=== PATIENT | male | born 1980 | race Caucasian/White ===

== ENCOUNTER 2016-05-17 20:35 | Emergency (ER) | payer SELFPAY ==
[2016-05-17] MEDS ORDERED: TYLENOL ONE (21:17)
[2016-05-17] MEDS ORDERED: TYLENOL PO ONE (21:18)
[2016-05-18 04:09] VITALS: BP 114/76
[2016-05-18] MEDS ORDERED: TYLENOL #3 PO ONE (05:19)
[2016-05-18] MEDS ORDERED: ROBITUSSIN PO ONE (05:23)
--- NOTE | 2016-05-18 05:23 | Emergency Department Report ---
HPI - General Chief Complaint: Fever Time Seen by Provider: 05/18/16 04:28 - HPI HPI: 35-year-old male presents to the ED complaining of headache and low back pain 2 days. Patient states headache began 2 days ago. Patient describes headache has generalized, 10 out of 10 in intensity at its worse, nonradiating. Patient denies blurred vision dizziness or loss of vision. Patient also admits to low back pain times several days due to work. 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 Patient also made some nonproductive dry cough that's worsened with inhalation. Patient admits fever, chills ED Past Medical Hx - Past Medical History Previous Medical History?: Yes Hx GERD: Yes - Surgical History Past Surgical History?: Yes Additional Surgical History: hernia repair 2003 - Social History Smoking Status: Former Smoker - Medications Home Medications: Home Medications Medication Instructions Recorded Confirmed Last Taken Type Ketorolac [Toradol] 10 mg PO Q6H PRN #20 tablet 05/23/15 Unknown Rx Promethazine [Phenergan TAB] 25 mg PO Q8HR PRN #15 tab 05/30/15 Unknown Rx Acetaminophen [Acetaminophen 8 650 mg PO Q8H #30 tablet.er 05/18/16 Unknown Rx Hour] Azithromycin [Zithromax] 250 mg PO DAILY #6 tablet 05/18/16 Unknown Rx Cyclobenzaprine [Flexeril] 10 mg PO TID PRN #20 tablet 05/18/16 Unknown Rx guaiFENesin 400 mg PO Q4H #20 tablet 05/18/16 Unknown Rx ED Review of Systems ROS: Stated complaint: HEADACHE Other details as noted in HPI Constitutional: denies: chills, fever Eyes: denies: eye pain, eye discharge, vision change ENT: denies: ear pain, throat pain, dental pain, hearing loss, congestion Respiratory: cough. denies: shortness of breath, SOB at rest, wheezing Cardiovascular: denies: chest pain, palpitations Endocrine: no symptoms reported Gastrointestinal: denies: abdominal pain, nausea, vomiting, diarrhea, constipation, hematemesis Genitourinary: denies: urgency, dysuria Musculoskeletal: back pain (bilateral lower back), myalgia. denies: joint swelling, arthralgia Skin: denies: rash, lesions Neurological: denies: headache, weakness, paresthesias Psychiatric: denies: anxiety, depression Hematological/Lymphatic: denies: easy bleeding, easy bruising Physical Exam - Physical Exam Vital Signs: Vital Signs 05/17/16 05/18/16 21:15 04:08 Temperature 100.2 F H 99.1 F Pulse Rate 99 H 79 Respiratory 18 18 Rate Blood Pressure 129/80 Blood Pressure 114/76 [Right] O2 Sat by Pulse 97 98 Oximetry General: LAD and oriented 3. Vital signs shows low-grade fever and tachycardia Physical Exam: GENERAL: Alert and oriented x3, no apparent distress, Normal Gait, atraumatic. HEAD: Head is normocephalic and a-traumatic. EYES: Extra ocular muscles are intact. Pupils are equal, round, and reactive to light and accommodation. EARS: symetrical, atraumatic, non tender, ear canal clear and moderate cerumen, tympanic membrance non inflamed. gross auditory nml bilaterally. NOSE: Nose symetrical, Nontender,Nares appeared normal. MOUTH:Mouth is well hydrated and without lesions. Tonsils nonerythematous or swollen, Uvula midline, Tongue not elevated. Mucous membranes are moist. Posterior pharynx clear, no exudate or lesions. Patent airways. NECK: Supple. Non edematous, No carotid bruits. No lymphadenopathy or thyromegaly. LUNGS: Symetrical with respiration, No wheezing, no rales or crackles, CTAB. Dry nonproductive cough HEART: S1, S2 present, regular rate and rhythm without murmur, no rubs, no gallops. ABDOMEN: No organomegaly was noted,Positive bowel sounds, soft, and non- distended. . Nontender to palpation on all Quadrants, NO CVA tenderness. EXTREMITIES/MUSCULOSKELETAL: No cyanosis, clubbing, rash, lesions or edema. Full ROM bilaterally. UE/LE Pulses 2+ bilaterally. LE and UE 5+ strength bilaterally. Tenderness to palpation of the latissimus dorsi muscles. No L- spine tenderness SKIN: Warm and dry, No lesions, No ulceration or induration present. ED Course Vital Signs 05/17/16 05/18/16 21:15 04:08 Temperature 100.2 F H 99.1 F Pulse Rate 99 H 79 Respiratory 18 18 Rate Blood Pressure 129/80 Blood Pressure 114/76 [Right] O2 Sat by Pulse 97 98 Oximetry ED Medical Decision Making - Medical Decision Making 35-year-old male presents with bronchitis/URI and a low back strain ED course: Patient received 650 mg of Tylenol in triage. Patient received 2 tablets of Tylenol No. 3 and Robitussin in the ED. Fever reduced to 99.1F. Discuss all medications for URI symptoms as well as low back strain. Discussed to continue taking Tylenol for pain as well as fever. Discussed to not drink alcohol and take medication. Discuss Flexeril drowsy effects and not to take while driving or work. Discuss heat application to lower back. Discussed with patient follow-up with primary care physician as referred Critical care attestation.: If time is entered above; I have spent that time in minutes in the direct care of this critically ill patient, excluding procedure time. ED Disposition Clinical Impression: Strain of muscle, fascia and tendon of lower back, initial encounter, Bronchitis Disposition: DISCHARGED TO HOME OR SELFCARE Is pt being admited?: No Does the pt Need Aspirin: No Condition: Stable Instructions: Chronic Bronchitis (ED), Acute Bronchitis (ED), Muscle Strain (ED ), Heat Pack Application (ED) Prescriptions: Acetaminophen [Acetaminophen 8 Hour] 650 mg PO Q8H #30 tablet.er Cyclobenzaprine [Flexeril] 10 mg PO TID PRN #20 tablet PRN Reason: Muscle Spasm Azithromycin [Zithromax] 250 mg PO DAILY #6 tablet guaiFENesin 400 mg PO Q4H #20 tablet Forms: Accompanied Note, Work/School Release Form(ED) Time of Disposition: 05:41 Print Language: ARABIC
== END 2016-05-18 05:54 | disposition home or self-care (01) ==
LOC: ED 20:35
DX: S39.012A Strain of muscle, fascia and tendon of lower back, initial encounter (principal); J40 Bronchitis, not specified as acute or chronic; K21.9 Gastro-esophageal reflux disease without esophagitis; Z87.891 Personal history of nicotine dependence; X58.XXXA Exposure to other specified factors, initial encounter; Y93.89 Activity, other specified; Y99.9 Unspecified external cause status; Y92.89 Other specified places as the place of occurrence of the external cause
CPT/HCPCS: 99282